=== PATIENT | male | born 1985 | race African-American/Black ===

== ENCOUNTER 2018-07-04 17:55 | Emergency (ER) | payer OTHER ==
[~2018-07-04] VITALS: Ht 185.4 cm; Wt 97.0 kg
[2018-07-04] MEDS ORDERED: LIDOCAINE HCL/EPINEPHRINE 1%-EPI 1:100,000 30 ML VIAL INFIL ONE (21:30)
[2018-07-04] MEDS ORDERED: HYDROCODONE/ACETAMINOPHEN 5/325MG TABLET PO ONE (21:30)
[2018-07-04 21:54] VITALS: BP 125/80
== END 2018-07-04 22:34 | disposition home or self-care (01) ==
LOC: ER 17:55
DX: S39.91XA Unspecified injury of abdomen, initial encounter (principal)
CPT/HCPCS: 99283

== ENCOUNTER 2022-10-21 18:33 | Emergency (ER) | payer OTHER ==
[~2022-10-21] VITALS: Ht 182.9 cm; Wt 82.0 kg
[2022-10-21 18:45] VITALS: BP 138/96
[2022-10-21 21:19] LABS: BASOPHILS % 0.5 % (0.0-2.0); EOSINOPHILS % 0.2 % (0.0-5.0); HEMATOCRIT. 49.3 % (42.0-52.0); HEMOGLOBIN. 16.6 g/dL (14.0-18.0); LYMPHOCYTES % 15.8 % (20.0-50.0); MEAN CORPUSCULAR HEMOGLOBIN 29.4 pg (28.0-32.0); MEAN CORPUSCULAR VOLUME 87.1 fL (80.0-94.0); MEAN PLATELET VOLUME 10.3 fl (7.4-10.4); NEUTROPHILS % 74.5 % (40.0-76.0); PLATELET 218 x1000/uL (130-400); RED BLOOD CELL COUNT 5.66 mill/uL (4.7-6.1); RED CELL DISTRIBUTION WIDTH 13.6 % (11.6-14.6)
[2022-10-22] MEDS ORDERED: IBUP-2028 MT (01:04)
[2022-10-23 08:56] LABS: CHLORIDE 92 mEq/L (98-107)
== END 2022-10-22 03:08 | disposition home or self-care (01) ==
LOC: ER 18:33
DX: R07.9 Chest pain, unspecified (principal); Z87.19 Personal history of other diseases of the digestive system
CPT/HCPCS: 36415; 71045; 80053; 84484; 85025; 85379; 99284

== ENCOUNTER 2022-10-23 02:33 | Emergency (ER) | payer SELFPAY ==
[~2022-10-23] VITALS: Ht 177.8 cm; Wt 85.0 kg
[~2022-10-23 02:33] MED LIST: IBUP-2028 MT
[2022-10-23 02:43] VITALS: BP 138/87
[2022-10-23] MEDS ORDERED: ONDANSETRON 4MG ODT PO STA (02:46)
[2022-10-23 03:28] LABS: BASOPHILS % 0.7 % (0.0-2.0); EOSINOPHILS % 1.5 % (0.0-5.0); HEMATOCRIT. 50.2 % (42.0-52.0); HEMOGLOBIN. 16.8 g/dL (14.0-18.0); LYMPHOCYTES % 14.7 % (20.0-50.0); MEAN CORPUSCULAR VOLUME 86.7 fL (80.0-94.0); MEAN PLATELET VOLUME 10.4 fl (7.4-10.4); MONOCYTES % 10.1 % (2.0-8.0); PLATELET 224 x1000/uL (130-400); RED BLOOD CELL COUNT 5.79 mill/uL (4.7-6.1); RED CELL DISTRIBUTION WIDTH 13.8 % (11.6-14.6)
[2022-10-23 03:45] LABS: CHLORIDE 88 mEq/L (98-107)
[2022-10-23] MEDS ORDERED: POTASSIUM CHLORIDE 20MEQ TABLET SR PO ONE (04:00)
[2022-10-23 04:40] LABS: ETHANOL BLOOD < 10 mg/dL
== END 2022-10-23 06:38 | disposition left against medical advice (07) ==
LOC: ER 02:33
DX: R10.9 Unspecified abdominal pain (principal); E87.6 Hypokalemia; D72.829 Elevated white blood cell count, unspecified
CPT/HCPCS: 36415; 71045; 80053; 80320; 85025; 86850; 86900; 99284; G0480